=== PATIENT | male | born 1960 | race Caucasian/White ===

== ENCOUNTER → 2018-06-20 | Outpatient (CLI) | payer OTHER | LOC: COL.PUL 11:14 | DX: J45.30 Mild persistent asthma, uncomplicated (principal); Z87.891 Personal history of nicotine dependence ==

== ENCOUNTER 2018-12-26 13:08 | Day surgery (SDC) | payer OTHER ==
[~2018-12-26] VITALS: Ht 172.7 cm; Wt 84.2 kg
[2018-12-26 13:40] VITALS: BP 125/90; PULSE 64; TEMP 97.5
[2018-12-26] MEDS ORDERED: LIPITOR20 MG PO (13:43)
[2018-12-26 14:30] VITALS: BP 122/86; PULSE 60; TEMP 97.4
--- NOTE | 2018-12-26 14:30 | NUR ---
1430-Patient is back in [facility] [place] with at bedside. Connected to monitors and vitals are stable. Given coffee per request although he is still very drowsy. Call puente in reach. 1435-Dr. Wilson at bedside and discussing procedure findings with patient and his . Questions addressed.
[2018-12-26 14:45] VITALS: BP 130/90; PULSE 60
--- NOTE | 2018-12-26 14:45 | NUR ---
1445-Patient remains drowsy although continues to arouse to answer questions. Given water per request. He denies having any pain or nausea. Vitals are stable. No further needs or concerns expressed at this time.
[2018-12-26 15:00] VITALS: BP 124/80; PULSE 62; TEMP 97.7
--- NOTE | 2018-12-26 15:00 | NUR ---
1500-Vitals remain stable and patient is tolerating coffee and water without any reports of N/V. 1505-IV dc'd and tip of catheter intact. No active bleeding noted. Gauze and tape applied. Patient is getting dressed and ready for discharge home. Will prepare discharge instructions.
--- NOTE | 2018-12-26 15:20 | NUR ---
[id number] is dressed and ready for discharge home. Discussed moderate sedation, post colonoscopy, and diverticulosis handouts/discharge instructions with patient and his , Nazia. Questions and concerns addressed. Copy of instructions given to them for use at home. Respirations are even and unlabored. No reports of pain or discomfort. IV removal site is wnl without any bleeding noted. 1530-Taken via wheelchair and assisted into private vehicle with his . Belongings and discharge instructions are with them.
== END 2018-12-26 15:30 | disposition home or self-care (01) ==
LOC: SDCO 13:08
DX: Z12.11 Encounter for screening for malignant neoplasm of colon (principal); K57.30 Diverticulosis of large intestine without perforation or abscess without bleeding; K62.89 Other specified diseases of anus and rectum; E78.00 Pure hypercholesterolemia, unspecified
CPT/HCPCS: J2250; J3010; J7030